=== PATIENT | male | born 1990 | race African-American/Black ===

== ENCOUNTER 2018-06-29 23:36 | Emergency (ER) | payer OTHER ==
[~2018-06-29] VITALS: Ht 182.9 cm; Wt 80.0 kg
[2018-06-30 00:54] LABS: BASOPHILS % 0.3 % (0.0-2.0); EOSINOPHILS % 0.3 % (0.0-5.0); HEMATOCRIT. 44.8 % (42.0-52.0); LYMPHOCYTES % 8.6 % (20.0-50.0); MEAN CORPUSCULAR HEMOGLOBIN 30.1 pg (28.0-32.0); MEAN PLATELET VOLUME 7.6 fl (7.4-10.4); MONOCYTES % 5.9 % (2.0-8.0); NEUTROPHILS % 84.9 % (40.0-76.0); PLATELET 249 x1000/uL (130-400); RED BLOOD CELL COUNT 5.33 mill/uL (4.7-6.1)
[2018-06-30 00:59] LABS: CHLORIDE 110 mEq/L (98-107)
[2018-06-30 01:05] LABS: ETHANOL BLOOD < 10 mg/dL
[2018-06-30] MEDS ORDERED: POTASSIUM CHLORIDE 20MEQ TABLET SR PO ONE (01:15)
[2018-06-30 01:24] VITALS: BP 140/78
[2018-06-30 01:54] LABS: CLARITY URINE CLEAR (CLEAR); COLOR URINE YELLOW (YELLOW); KETONES URINE 1+ (NEGATIVE); LEUKOCYTE ESTERASE URINE TRACE (NEGATIVE); NITRITE URINE NEGATIVE (NEGATIVE); OCCULT BLOOD URINE 1+ (NEGATIVE); PROTEIN URINE 1+ (NEGATIVE); SPECIFIC GRAVITY URINE 1.018 (1.005-1.030); UROBILINOGEN URINE 0.2 E.U./dL (0.2-1.0)
[2018-06-30 02:17] LABS: *BARBITURATES SCREEN URINE NEGATIVE (NEGATIVE); *BENZODIAZEPINES SCREEN URINE NEGATIVE (NEGATIVE); *COCAINE SCREEN URINE NEGATIVE (NEGATIVE)
[2018-06-30 02:18] LABS: *AMPHETAMINES SCREEN URINE NEGATIVE (NEGATIVE); CANNABINOID URINE SCREEN PRESUMTIVE POSITIVE (NEGATIVE); METHADONE URINE SCREEN NEGATIVE (NEGATIVE); OPIATES URINE SCREEN NEGATIVE (NEGATIVE); PHENCYCLIDINE URINE SCREEN NEGATIVE (NEGATIVE)
== END 2018-06-30 01:31 | disposition home or self-care (01) ==
LOC: ER 23:36
DX: R41.82 Altered mental status, unspecified (principal); J45.909 Unspecified asthma, uncomplicated
CPT/HCPCS: 36415; 70450; 80053; 80305; 80307; 80329; 81003; 82962; 84443; 85025; 93005; 99285; G0482; Z7610

== ENCOUNTER 2020-04-15 10:22 | Emergency (ER) | payer SELFPAY ==
[~2020-04-15] VITALS: Ht 195.6 cm; Wt 114.0 kg
[2020-04-15 10:31] VITALS: BP 133/57
[2020-04-15] MEDS ORDERED: IBUPROFEN 800MG TABLET PO ONE (12:00)
== END 2020-04-15 12:14 | disposition home or self-care (01) ==
LOC: ER 10:22
DX: S93.402A Sprain of unspecified ligament of left ankle, initial encounter (principal); J45.909 Unspecified asthma, uncomplicated; W51.XXXA Accidental striking against or bumped into by another person, initial encounter; Y93.89 Activity, other specified; Y92.488 Other paved roadways as the place of occurrence of the external cause
CPT/HCPCS: 73610; 99283